=== PATIENT | female | born 1995 | race Caucasian/White ===

== ENCOUNTER 2018-06-10 22:11 | Emergency (ER) | payer OTHER ==
[~2018-06-10] VITALS: Ht 165.1 cm; Wt 63.5 kg
[2018-06-10 23:15] VITALS: BP 116/64
[2018-06-10 23:54] LABS: APPEARANCE,URINE CLEAR (CLEAR); BILIRUBIN,URINE NEGATIVE (NEGATIVE); BLOOD, URINE TRACE-I (NEGATIVE); COLOR,URINE YELLOW (YELLOW); LEUKOCYTE ESTERASE ,URINE SMALL (NEGATIVE); NITRITE, URINE NEGATIVE (NEGATIVE); UGLUCOSE NEGATIVE (NEGATIVE)
[2018-06-10 23:56] LABS: BASOPHILS # (AUTO) 0.1 K/uL (0.00-0.22); BASOPHILS % (AUTO) 0.8 % (0.0-2.0); EOSINOPHILS # (AUTO) 0.1 K/uL (0-0.4); EOSINOPHILS % (AUTO) 1.3 % (0.0-4.0); HEMATOCRIT 38.9 % (36-48); HEMOGLOBIN 12.7 g/dL (12.0-16.0); LYMPHOCYTES # (AUTO) 2.2 K/uL (2.5-16.5); LYMPHOCYTES % (AUTO) 33.5 % (20.5-51.1); MEAN CORPUSCULAR HEMOGLOBIN 29 pg (27-31); MEAN CORPUSCULAR HGB CONC 33 g/dL (33-37); MONOCYTES # (AUTO) 0.4 K/uL (0.8-1.0); MONOCYTES % (AUTO) 6.5 % (1.7-9.3); NEUTROPHILS # (AUTO) 3.9 K/uL (1.8-7.7); NEUTROPHILS % (AUTO) 57.9 % (42.2-75.2); PLATELET COUNT (AUTO) 287 K/uL (140-450); RED BLOOD CELL COUNT(AUTO) 4.42 MIL/uL (4.20-5.40); RED CELL DISTRIBUTION WIDTH 13.5 % (11.6-13.7); WHITE BLOOD COUNT (AUTO) 6.7 K/uL (4.8-10.8)
[2018-06-11 00:07] LABS: RBC,URINE 3-10 (FEW) /HPF (0-5); WBC,URINE 6-15 (FEW) /HPF (0-5)
[2018-06-11 00:09] LABS: ALBUMIN 3.9 g/dL (3.4-5.0); ANION GAP 10.3 (8-16); CARBON DIOXIDE 29.4 mmol/L (21-32); CREATININE 0.8 mg/dL (0.6-1.3); POTASSIUM 3.7 mmol/L (3.5-5.1); TOTAL BILIRUBIN 0.6 mg/dL (0.0-1.0)
[2018-06-11] MEDS: KETOROLAC 60 MG/2 ML VIAL IM ONE (02:20)
[2018-06-11 03:59] VITALS: BP 104/47
== END 2018-06-11 03:59 | disposition home or self-care (01) ==
LOC: MED 22:11
DX: N39.0 Urinary tract infection, site not specified (principal); Z88.0 Allergy status to penicillin; Z88.6 Allergy status to analgesic agent; Z88.1 Allergy status to other antibiotic agents
CPT/HCPCS: 36415; 80053; 81001; 81025; 83690; 85025; 87086; 96372; 99283; J1885

== ENCOUNTER 2018-09-12 21:44 | Emergency (ER) | payer OTHER ==
[~2018-09-12] VITALS: Ht 165.1 cm; Wt 63.5 kg
[2018-09-12 21:48] VITALS: BP 123/64
--- NOTE | 2018-09-12 22:37 | NUR ---
PT AMBULATED TO ER BED 11
--- NOTE | 2018-09-12 22:57 | NUR ---
PT TO ED W C/O LOWER BACK X 1 DAY S/P LIFTING WEIGHT AT GYM X1 DAY AGO, PT REPORTS LIFTING APPROX 140LBS. NO OBVIOUS TRAUMA NOTED. PT PLACED INTO BED, PENDING MD SHARIF.
--- NOTE | 2018-09-12 23:11 | NUR ---
Patient returned from XRAY. RN re-evaluating patient at bedside.
[2018-09-12] MEDS ORDERED: IBUPROFEN 800 MG TAB PO ONE (23:30)
--- NOTE | 2018-09-12 23:35 | NUR ---
Dr. Griffiths re-evaluating patient at bedside.
[2018-09-12 23:50] VITALS: BP 123/64
--- NOTE | 2018-09-12 23:50 | NUR ---
Patient discharged with v/s stable. Written and verbal after care instructions given and explained. Patient alert, oriented and verbalized understanding of instructions. Ambulatory with steady gait. All questions addressed prior to discharge. ID band removed. Patient advised to follow up with PMD. Rx of ROBAXIN, IBUPROFEN given. Patient educated on indication of medication including possible reaction and side effects. Opportunity to ask questions provided and answered.
== END 2018-09-12 23:50 | disposition home or self-care (01) ==
LOC: MED 21:44
DX: S39.012A Strain of muscle, fascia and tendon of lower back, initial encounter (principal); Z88.0 Allergy status to penicillin; Z88.1 Allergy status to other antibiotic agents; Z88.6 Allergy status to analgesic agent; X50.0XXA Overexertion from strenuous movement or load, initial encounter; Y93.89 Activity, other specified; Y92.89 Other specified places as the place of occurrence of the external cause; Y99.8 Other external cause status
CPT/HCPCS: 72100; 81002; 81025; 99283

== ENCOUNTER 2019-01-28 19:17 | Emergency (ER) | payer OTHER ==
[~2019-01-28] VITALS: Ht 160 cm; Wt 61.7 kg
[2019-01-28 19:31] VITALS: BP 116/59
--- NOTE | 2019-01-28 19:31 | NUR ---
TO BED # 03 AMBULATORY
--- NOTE | 2019-01-28 19:45 | NUR ---
PT IS A 23 Y/O FEMALE WHO PRESENTS TO THE ED C/O COUGH. PER PT SYMPTOMS STARTED X4 DAYS AGO. PT REPORTS 8/10 ACHING HEADACHE AND CHEST WALL PAIN THAT DOES NOT RADIATE. PT STATES THAT SHE TOOK MOTRIN X1 HOUR AGO. PT DENIES N/V/D. PT AWAKE AND ALERT, RR EVEN/UNLABORED. PT REPOSITIONED FOR COMFORT, BED IN LOWEST POSITION. ER PROVIDER NOTIFIED. WILL CONTINUE TO MONITOR. DENIES PMH NKA
--- NOTE | 2019-01-28 19:49 | NUR ---
X-Ray at bedside.
[2019-01-28 20:25] VITALS: BP 128/82
--- NOTE | 2019-01-28 20:25 | NUR ---
Patient discharged with v/s stable. Written and verbal after care instructions given and explained. Patient alert, oriented and verbalized understanding of instructions. Ambulatory with steady gait. All questions addressed prior to discharge. ID band removed. Patient advised to follow up with PMD. Rx of AZITHROMYCIN 250MG, ALBUTEROL 90MCG/ACTUATION, ACETAMINOPHEN 500MG AND NAPROSYN 500MG given. Patient educated on indication of medication including possible reaction and side effects. Opportunity to ask questions provided and answered.
== END 2019-01-28 20:25 | disposition home or self-care (01) ==
LOC: MED 19:17
DX: J18.9 Pneumonia, unspecified organism (principal); Z88.0 Allergy status to penicillin; Z88.1 Allergy status to other antibiotic agents; Z88.6 Allergy status to analgesic agent
CPT/HCPCS: 71045; 81002; 81025; 99283; Q0092

== ENCOUNTER 2019-03-07 18:37 | Emergency (ER) | payer OTHER ==
[~2019-03-07] VITALS: Ht 162.6 cm; Wt 62.6 kg
[2019-03-07 18:45] VITALS: BP 101/61
--- NOTE | 2019-03-07 18:51 | NUR ---
WAIT AT LOBBY.
--- NOTE | 2019-03-07 19:19 | NUR ---
PT AMBULATED TO ER BED 02
--- NOTE | 2019-03-07 19:25 | NUR ---
23 YO F BIB SELF AND BOYFRIEND C/O 7/10 PULSATING RIGHT SIDE HILL X 2 DAYS THAT IS CONSTANT. PT STATES "I CAN SMELL IRON IN MY RIGHT NOSTRIL". DENIES RECENT EPISTAXIS. PT STATES SHE HAS TRIED MEDICATING WITH 600 MG MOTRIN WITH NO RELIEF. +VOMITING, -BLURRY VISION, - DIZZINESS. -- PT AWAKE, A/O X 4, CALM, COOPERATIVE. ANSWERING QUESTIONS APPROPRIATELY. BEHAVIOR AGE APPROPRIATE. -- SKIN PINK, WARM, DRY. BREATHING EVEN, UNLABORED. PMH-- DENIES RX-- DENIES
--- NOTE | 2019-03-07 20:45 | NUR ---
DR. JONAS EVALUATING AT BEDSIDE.
[2019-03-07] MEDS ORDERED: KETOROLAC 30 MG/ML VIAL IM ONE (21:15)
[2019-03-07] MEDS ORDERED: diphenhydrAMINE 50 MG/ML VIAL IM ONE (21:15)
--- NOTE | 2019-03-07 21:30 | NUR ---
MEDICATIONS ADMINISTERED ORDERED. RISKS/BENEFITS REVEIWED WITH PT. WILL CONTINUE TO MONITOR. Addendum: 03/08/19 at 0041 by [facility] PT'S BASIMFRIEND STATES HE WILL DRIVE HER HOME.
--- NOTE | 2019-03-07 22:15 | NUR ---
PT STATES HER PAIN DECREASED TO 2/10 AND FEELS BETTER. PT ASKING WHEN SHE CAN BE DISCHARGED. EXPLAINED TO PT THAT ERMD MUST PROVIDE DISCHARGE PAPERWORK FIRST.
--- NOTE | 2019-03-07 23:20 | NUR ---
PT RESTING COMFORTABLY IN BED WITH VSS. SKIN PINK, WARM, DRY. BREATHING EVEN, UNLABORED. PT ASKING ABOUT DISCHARGE PAPERWORK. EXPLAINED TO PT THAT ERMD IS PERFORMING A PROCEDURE WITH ANOTHER PT AND THAT THERE IS NO ESTIMATED TIME FOR DISCHARGE.
[2019-03-08 00:08] VITALS: BP 99/62
--- NOTE | 2019-03-08 00:22 | NUR ---
PT APPROACHED NURSING STATION WITH BOYFRIEND STATING THAT SHE DOESN'T WISH TO WAIT ANY LONGER FOR DISCHARGE. EXPLAINED TO PT THAT DR. JONAS IS STILL PERFORMING A PROCEDURE AND WILL BE WITH THEM SOON POSSIBLE. PT STATES "I JUST DON'T WANT TO WAIT ANYMORE BECAUSE I DON'T KNOW HOW MUCH LONGER I'LL BE WAITING." PATIENT ELOPED FROM FACILITY. DISCHARGE INSTRUCTIONS NOT GIVEN TO PATIENT. DR. JONAS NOTIFIED.
== END 2019-03-08 00:21 | disposition left against medical advice (07) ==
LOC: MED 18:37
DX: R51 Headache (principal); Z88.0 Allergy status to penicillin; Z88.1 Allergy status to other antibiotic agents; Z88.6 Allergy status to analgesic agent
CPT/HCPCS: 81002; 81025; 96372; 99283; J1200; J1885

== ENCOUNTER 2019-03-26 15:55 | Emergency (ER) | payer OTHER ==
[~2019-03-26] VITALS: Ht 162.6 cm; Wt 64.4 kg
[2019-03-26 15:59] VITALS: BP 125/74
--- NOTE | 2019-03-26 16:04 | NUR ---
PT TAKEN TO BED 11.
--- NOTE | 2019-03-26 16:05 | NUR ---
PATIENT PRESENTS TO ED WITH LLQ PAIN FOR THE PAST 4 MONTHS AND WORSENING THE PAST 2 DAYS; DENIES UTI S/SX, DENIES VAGINAL BLEEDING OR DISCHARGE .PATIENT STATES PAIN OF 9/10 AT THIS TIME; VSS; PATIENT POSITIONED FOR COMFORT; HOB ELEVATED; BEDRAILS UP X2; BED DOWN. ER MD MADE AWARE OF PT STATUS.
--- NOTE | 2019-03-26 17:00 | NUR ---
PT IS RESTING IN BED, NOT BEING SEEN BY ED MD YET, DR. HERNANDEZ MADE AWARE.
--- NOTE | 2019-03-26 17:20 | NUR ---
Patient being evaluated by physician at bedside.
[2019-03-26] MEDS ORDERED: KETOROLAC 30 MG/ML VIAL IVP ONE (17:25)
[2019-03-26 17:44] LABS: BASOPHILS % (AUTO) 0.6 % (0.0-2.0); EOSINOPHILS # (AUTO) 0.1 K/uL (0-0.4); EOSINOPHILS % (AUTO) 1.7 % (0.0-4.0); HEMATOCRIT 39.8 % (36-48); HEMOGLOBIN 13.2 g/dL (12.0-16.0); LYMPHOCYTES # (AUTO) 1.8 K/uL (2.5-16.5); LYMPHOCYTES % (AUTO) 35.7 % (20.5-51.1); MEAN CORPUSCULAR HEMOGLOBIN 30 pg (27-31); MEAN CORPUSCULAR HGB CONC 33 g/dL (33-37); MEAN CORPUSCULAR VOLUME 89.6 fL (80-94); MONOCYTES # (AUTO) 0.4 K/uL (0.8-1.0); MONOCYTES % (AUTO) 7.4 % (1.7-9.3); NEUTROPHILS # (AUTO) 2.7 K/uL (1.8-7.7); NEUTROPHILS % (AUTO) 54.6 % (42.2-75.2); PLATELET COUNT (AUTO) 259 K/uL (140-450); RED BLOOD CELL COUNT(AUTO) 4.44 MIL/uL (4.20-5.40); RED CELL DISTRIBUTION WIDTH 14.8 % (11.6-13.7); WHITE BLOOD COUNT (AUTO) 4.9 K/uL (4.8-10.8)
--- NOTE | 2019-03-26 18:00 | NUR ---
NO CHANGE OF CONDTION, PT STATED THE PAIN WENT AWAY, FEEDING BETTER NOW.
[2019-03-26 18:16] VITALS: BP 125/74
--- NOTE | 2019-03-26 18:16 | NUR ---
Patient discharged with v/s stable. Written and verbal after care instructions given and explained. Rx of NAPROSYN given. Patient educated on indication of medication including possible reaction and side effects. All questions addressed prior to discharge. ID band removed. Patient advised to follow up with PMD.
[2019-03-26 18:18] LABS: ANION GAP 12.9 (8-16); CARBON DIOXIDE 27.2 mmol/L (21-32); CREATININE 0.6 mg/dL (0.6-1.3); POTASSIUM 4.1 mmol/L (3.5-5.1)
[2019-03-26 18:24] LABS: ALBUMIN 4.1 g/dL (3.4-5.0); TOTAL BILIRUBIN 0.5 mg/dL (0.0-1.0)
== END 2019-03-26 18:16 | disposition home or self-care (01) ==
LOC: MED 15:55
DX: N83.209 Unspecified ovarian cyst, unspecified side (principal); Z88.0 Allergy status to penicillin; Z88.1 Allergy status to other antibiotic agents; Z88.6 Allergy status to analgesic agent
CPT/HCPCS: 36415; 80053; 81025; 85025; 85651; 96372; 99283; J1885